=== PATIENT | male | born 1955 | race American Indian/Alaskan Native ===

== ENCOUNTER 2016-10-31 11:06 | Emergency (ER) | payer OTHER ==
[2016-10-31 11:07] VITALS: BMI 25.8
[2016-10-31 11:18] VITALS: RESP 18
[2016-10-31] MEDS ORDERED: Lidocaine 5% Patch TD STA (11:35)
[2016-10-31] MEDS ORDERED: Lidocaine 5% Patch TD ONE (11:43)
--- NOTE | 2016-10-31 12:20 | RAD ---
PROCEDURE: Radiographs of the Lumbar Spine. HISTORY: Fall COMPARISON: 11/30/2013 FINDINGS: BONES: There is mild dextrocurvature in the lumbar spine. There is degenerative 7 mm retrolisthesis of L5 on S1 4 mm retrolisthesis of L4 on L5. Bone mineralization is normal. There is no acute fracture. DISC SPACES: There is moderate degenerative disc disease at L4-5 and L5-S1 with large anterior osteophytes, reduced disc heights and facet arthropathy, worse at L5-S1. No significant interval change. OTHER FINDINGS: None. IMPRESSION: No acute fracture. No significant interval change in moderate degenerative disc disease at L4-5 and L5-S1.
--- NOTE | 2016-10-31 12:31 | C.PDOC ---
History Of Present Illness 61 yr old male with past surgical history of cervical spine surgery in 2016 still in rehab, presents to the ER stating 4 days ago he slipped and fell in his kitchen and now has pain in the lower back. Patient states the pain is persistent and radiated outwards to right and left side. Patient denies LOC, fever, nausea, vomiting, abdominal pain, diarrhea, dysuria, incontinence, weakness or numbness. Time Seen by Provider: 10/31/16 11:24 Chief Complaint (Nursing): Back Pain History Per: Patient History/Exam Limitations: no limitations Onset/Duration Of Symptoms: Persistent (4 days) Current Symptoms Are (Timing): Still Present Past Medical History Reviewed: Historical Data, Nursing Documentation, Vital Signs Vital Signs: Last Vital Signs Temp 98.2 F 10/31/16 12:37 Pulse 72 10/31/16 12:37 Resp 18 10/31/16 12:37 BP 148/75 10/31/16 12:37 Pulse Ox 94 L 10/31/16 13:16 - Medical History PMH: Arthritis (Gout), Asthma, Back Problems, HTN, Hypercholesterolemia, Rheumatoid Arthritis, Chronic Pain (back pain) Surgical History: Back Surgery - [facility] Procedures ARTHROCENTESIS (07/15/13) CLOSURE SKIN & SUBCUTANEOUS NEC (03/13/14) TETANUS TOXOID ADMINIST (03/13/14) Family History: States: No Known Family Hx - Social History Hx Tobacco Use: Yes Hx Alcohol Use: Yes (not all the time) Hx Substance Use: No (Denied) - Immunization History Hx Tetanus Toxoid Vaccination: Yes Hx Influenza Vaccination: No Hx Pneumococcal Vaccination: No Review Of Systems Except As Marked, All Systems Reviewed And Found Negative. Constitutional: Negative for: Fever Gastrointestinal: Negative for: Nausea, Vomiting, Abdominal Pain, Diarrhea Genitourinary: Negative for: Dysuria, Incontinence Musculoskeletal: Positive for: Back Pain (Lower back pain ) Neurological: Negative for: Weakness, Numbness Physical Exam - Physical Exam Appears: Non-toxic, No Acute Distress Skin: Warm, Dry, No Rash Head: Atraumatic, Normacephalic, No Laceration Oral Mucosa: Moist Neck: Normal, Normal ROM, Supple Chest: Symmetrical, No Tenderness Cardiovascular: Rhythm Regular, No Murmur Respiratory: Normal Breath Sounds, No Rales, No Rhonchi, No Stridor, No Wheezing Gastrointestinal/Abdominal: Normal Exam, Soft, No Tenderness, No Guarding, No Rebound Back: Other ((+) Tenderness to perispinal, right side lower lumbar area.) Extremity: Normal ROM, No Swelling Neurological/Psych: Oriented x3, Normal Speech, Normal Motor ED Course And Treatment O2 Sat by Pulse Oximetry: 94 - Other Rad X-Ray - LS Spine X-Ray: Viewed By Me, Read By Radiologist Interpretation: PROCEDURE: Radiographs of the Lumbar Spine. HISTORY: Fall. COMPARISON: 11/30/2013. FINDINGS: BONES: There is mild dextrocurvature in the lumbar spine. There is degenerative 7 mm retrolisthesis of L5 on S1 4 mm retrolisthesis of L4 on L5. Bone mineralization is normal. There is no acute fracture. DISC SPACES: There is moderate degenerative disc disease at L4-5 and L5-S1 with large anterior osteophytes, reduced disc heights and facet arthropathy, worse at L5-S1. No significant interval change. OTHER FINDINGS: None. IMPRESSION: No acute fracture. No significant interval change in moderate degenerative disc disease at L4-5 and L5-S1. Medical Decision Making Medical Decision Making: PLAN: * X-Ray - LS Spine * Lidoderm TD * Motrin PO * Tylenol PO Disposition Counseled Patient/Family Regarding: Studies Performed, Diagnosis, Need For Followup, Rx Given - Disposition Referrals: Obinna Vasquez MD [Primary Care Provider] - Disposition: HOME/ ROUTINE Disposition Time: 12:28 Condition: STABLE Additional Instructions: Please follow up with your primary physician and continue rehab as soon as possible. Return to the ED with any other concerns. Prescriptions: Lidocaine 5% [Lidoderm] 1 each TP DAILY #3 patch Ibuprofen [Motrin] 600 mg PO TID #15 tab Acetaminophen [Tylenol 325mg tab] 975 mg PO TID #36 tab Instructions: Back Exercises (ED), Back Pain (ED) Forms: General Discharge Instructions - POA Present On Arrival: None - Clinical Impression Clinical Impression: Lumbar sprain, Low back strain - Scribe Statement The provider has reviewed the documentation as recorded by the [employer] Provider Attestation: All medical record entries made by the Scribe were at my direction and personally dictated by me. I have reviewed the chart and agree that the record accurately reflects my personal performance of the history, physical exam, medical decision making, and the department course for this patient. I have also personally directed, reviewed, and agree with the discharge instructions and disposition.
[2016-10-31 12:38] VITALS: BP 148/75; PULSE 72; TEMP 98.2
[2016-10-31 12:43] VITALS: O2SAT 94
== END 2016-10-31 12:39 | disposition home or self-care (01) ==
LOC: C.ER 11:06 → SUPCPDRO 11:06 → C.ER 12:39
DX: S33.5XXA Sprain of ligaments of lumbar spine, initial encounter (principal); S39.012A Strain of muscle, fascia and tendon of lower back, initial encounter; W01.0XXA Fall on same level from slipping, tripping and stumbling without subsequent striking against object, initial encounter; Y93.89 Activity, other specified; Y92.000 Kitchen of unspecified non-institutional (private) residence as the place of occurrence of the external cause

== ENCOUNTER 2017-08-05 13:01 | Emergency (ER) | payer OTHER ==
[2017-08-05 13:02] VITALS: BMI 25.8
[2017-08-05 13:26] VITALS: RESP 18
[2017-08-05] MEDS ORDERED: Bupivacaine 0.5% Inj(30mL) INJ ONE (13:51)
[2017-08-05] MEDS ORDERED: methylPREDNISolone Depo 80 mg/ml Inj IM ONE (13:52)
--- NOTE | 2017-08-05 13:53 | C.PDOC ---
History Of Present Illness 62 years old male presents to ED on crutches with complaints of right knee pain and swelling. Patient states he had similar symptoms 2 years ago and it was diagnosed as a ganglion cyst. Denies any other physical complaints. Chief Complaint (Nursing): Lower Extremity Problem/Injury History Per: Patient History/Exam Limitations: no limitations Onset/Duration Of Symptoms: Days (3) Current Symptoms Are (Timing): Still Present Severity: Moderate Pain Scale Rating Of: 5 Recent travel outside of the [place]: No - Hip Description Of Injury: denies: Fell, Tripped, Lost Balance, Fainted, Struck With Object, MVC Past Medical History Reviewed: Historical Data, Nursing Documentation, Vital Signs Vital Signs: Last Vital Signs Temp 98.6 F 08/05/17 15:36 Pulse 84 08/05/17 15:36 Resp 18 08/05/17 15:36 BP 146/78 08/05/17 15:36 Pulse Ox 99 08/05/17 15:46 - Medical History PMH: Arthritis, Asthma, Back Problems, HTN, Hypercholesterolemia, Rheumatoid Arthritis, Chronic Pain (back pain) Surgical History: Back Surgery - [facility] Procedures ARTHROCENTESIS (07/15/13) CLOSURE SKIN & SUBCUTANEOUS NEC (03/13/14) TETANUS TOXOID ADMINIST (03/13/14) Family History: States: Unknown Family Hx - Social History Hx Tobacco Use: Yes Hx Alcohol Use: Yes (not all the time) Hx Substance Use: No (Denied) - Immunization History Hx Tetanus Toxoid Vaccination: Yes Hx Influenza Vaccination: No Hx Pneumococcal Vaccination: No Review Of Systems Constitutional: Negative for: Fever, Chills Gastrointestinal: Negative for: Nausea, Vomiting, Diarrhea Musculoskeletal: Positive for: Other (Right knee pain and swelling) Skin: Negative for: Rash Neurological: Negative for: Weakness, Numbness Psych: Negative for: Depression, Suicidal ideation Physical Exam - Physical Exam Appears: Non-toxic, Other (Awake and Alert) Skin: Normal Color, Warm, Dry Extremity: Swelling (Diffuse on right knee with obvious effusion ), Other ( Limited ROM on extension and flexation of right knee) Neurological/Psych: Oriented x3, Normal Speech, Normal Cognition ED Course And Treatment O2 Sat by Pulse Oximetry: 99 (Room air) Pulse Ox Interpretation: Normal Procedure: Blank - Time Out Time Out: Side verified, Sterile procedures obs. - Consent obtained: Consent obtained: Verbal - Performed by: Performed by:: Attending physician - Indications Indications(s):: Large joint effusion - Anesthetic Technique Anesthetic Technique: Local - Topical: Local/Regional Anesthetic:: Other (Bupivicane) - Patient Position Patient Position:: Supine - Location Location: Right, Knee - Needle Size Needle Size:: 19 mia - Description Discription of Procedure: 08/05/17 (Needle aspiration of joint) - Result Result: Successful - Post-Procedure Post-procedure:: Other (60 cc of jens colored fluid aspirated, no complications ) - Specimens/Tests Ordered Specimens/Tests Ordered: crystals, culture and cell count - Patient Tolerated Procedure Patient Tolerated Procedure:: Well Medical Decision Making Medical Decision Making: Administered Colocrys, Indocin, Marcaine and DEPO-Medrol. Ordered body fluid cultures, and fluid crystals. Disposition - Disposition Referrals: [facility] [Outside] Disposition: HOME/ ROUTINE Disposition Time: 15:43 Condition: GOOD Prescriptions: Indomethacin [Indocin] 50 mg PO TID PRN #21 cap PRN Reason: Pain, Mild (1-3) Instructions: Gout (ED) Forms: [employer] (Albanian) Print Language: SINGAPOREAN - Clinical Impression Clinical Impression: Arthritis, gouty - Scribe Statement The provider has reviewed the documentation as recorded by the Scribanuj Gabriel All medical record entries made by the Scribe were at my direction and personally dictated by me. I have reviewed the chart and agree that the record accurately reflects my personal performance of the history, physical exam, medical decision making, and the department course for this patient. I have also personally directed, reviewed, and agree with the discharge instructions and disposition. All medical record entries made by the Scribe were at my direction and personally dictated by me. I have reviewed the chart and agree that the record accurately reflects my personal performance of the history, physical exam, medical decision making, and the department course for this patient. I have also personally directed, reviewed, and agree with the discharge instructions and disposition.
[2017-08-05] MEDS ORDERED: MethylPREDNISolone 40 mg Vial ONE (14:37)
[2017-08-05 15:13] LABS: FLUID TYPE SYNOVIAL FLUID
[2017-08-05 15:36] VITALS: BP 146/78; PULSE 84; TEMP 98.6
[2017-08-05 15:45] VITALS: O2SAT 99
[2017-08-05 16:08] LABS: SF GROSS APPEARANCE CLOUDY (CLEAR)
[2017-08-05 16:10] LABS: SYNOVIAL FLUID MONO/MACROPHAGE 7 % (0-0)
[2017-08-06 10:17] LABS: FLUID CRYSTALS POSITIVE (NEGATIVE)
[2017-08-08 22:51] LABS: URIC ACID SYNOVIAL FLUID 9.4 mg/dL (<8.0)
== END 2017-08-05 15:57 | disposition home or self-care (01) ==
LOC: C.ER 13:01
DX: M10.9 Gout, unspecified (principal); M17.11 Unilateral primary osteoarthritis, right knee; I10 Essential (primary) hypertension; E78.00 Pure hypercholesterolemia, unspecified; M06.9 Rheumatoid arthritis, unspecified; Z87.891 Personal history of nicotine dependence

== ENCOUNTER 2018-03-29 08:38 | Emergency (ER) | payer OTHER ==
[2018-03-29 08:52] VITALS: BP 131/84; PULSE 86; RESP 18; TEMP 99.2; O2SAT 95; BMI 28.2
--- NOTE | 2018-03-29 09:20 | C.PDOC ---
History Of Present Illness 62-YEAR-OLD MALE, PRESENTS TO THE EMERGENCY DEPARTMENT REQUESTING EVAL FOR TB. PS WAS RECENTLY TOLD CLOSE PARTNER HAS TB. PT OTHERWISE ASYMPT. EXAM CTA B/L NO W/R/R REMAINDER NEG Chief Complaint (Nursing): Medical Clearance History Per: Patient History/Exam Limitations: no limitations Past Medical History Reviewed: Historical Data, Nursing Documentation, Vital Signs Vital Signs: Last Vital Signs Temp 99.2 F 03/29/18 09:01 Pulse 86 03/29/18 09:01 Resp 18 03/29/18 09:13 BP 131/84 03/29/18 09:01 Pulse Ox 95 03/29/18 09:22 - Medical History PMH: Arthritis, Asthma, Back Problems, HTN, Hypercholesterolemia, Rheumatoid Arthritis, Chronic Pain (back pain) Denies: Chronic Kidney Disease Surgical History: Back Surgery (spinal fusion) - [facility] Procedures ARTHROCENTESIS (07/15/13) CLOSURE SKIN & SUBCUTANEOUS NEC (03/13/14) TETANUS TOXOID ADMINIST (03/13/14) Family History: States: No Known Family Hx - Social History Hx Tobacco Use: Yes Hx Alcohol Use: No Hx Substance Use: No (Denied) - Immunization History Hx Tetanus Toxoid Vaccination: Yes Hx Influenza Vaccination: Yes (2017) Hx Pneumococcal Vaccination: No Review Of Systems Except As Marked, All Systems Reviewed And Found Negative. Physical Exam - Physical Exam Appears: Non-toxic, No Acute Distress Skin: Normal Color, Warm, Dry, No Rash Head: Atraumatic, Normacephalic Eye(s): bilateral: Normal Inspection, PERRL Nose: Normal Oral Mucosa: Moist Lips: Normal Appearing Neck: Normal ROM Chest: Symmetrical Cardiovascular: Rhythm Regular, No Murmur Respiratory: Normal Breath Sounds, No Decreased Breath Sounds, No Accessory Muscle Use, No Rales, No Rhonchi, No Wheezing Gastrointestinal/Abdominal: Soft, No Tenderness Extremity: Normal ROM, No Deformity Neurological/Psych: Oriented x3, Normal Speech ED Course And Treatment O2 Sat by Pulse Oximetry: 95 Pulse Ox Interpretation: Normal (RA) Medical Decision Making Medical Decision Making: MDM PT ADVISED ER DOES NOT PERFORM PPD TESTING. OFFERED CXR BUT PS WILL FU W PMD IN 2 DAYS. Disposition Counseled Patient/Family Regarding: Diagnosis, Need For Followup - Disposition Referrals: YOUR,PMD [Other] Disposition: HOME/ ROUTINE Disposition Time: 09:21 Condition: GOOD Additional Instructions: FOLLOW UP WITH YOUR PMD FOR FURTHER TESTING Instructions: TB Screening Test Forms: [employer] (Divehi) - Clinical Impression Clinical Impression: Exposure to TB, Medical assessment - Scribe Statement The provider has reviewed the documentation as recorded by the Scribe (Christine Garrett) All medical record entries made by the Scribe were at my direction and personally dictated by me. I have reviewed the chart and agree that the record accurately reflects my personal performance of the history, physical exam, medical decision making, and the department course for this patient. I have also personally directed, reviewed, and agree with the discharge instructions and disposition.
== END 2018-03-29 09:24 | disposition home or self-care (01) ==
LOC: C.ER 08:38
DX: Z20.1 Contact with and (suspected) exposure to tuberculosis (principal); E78.00 Pure hypercholesterolemia, unspecified; I10 Essential (primary) hypertension; M06.9 Rheumatoid arthritis, unspecified; Z72.0 Tobacco use

== ENCOUNTER 2018-11-09 08:31 | Emergency (ER) | payer OTHER ==
[2018-11-09 08:31] VITALS: BMI 25.8
[2018-11-09] MEDS ORDERED: Sodium Chloride 0.9% 1,000 ML IV ONE (09:00)
[2018-11-09] MEDS ORDERED: Iohexol 240 (50 ml) PO ONE (09:18)
--- NOTE | 2018-11-09 09:21 | C.PDOC ---
History Of Present Illness Pt is a 63 years old male with PMHx of asthma, HTN, "nerve damage" and gout presents to ED for complaints diffuse abdominal pain associated with nausea and 1 episode of vomiting that began 1 week ago. Patient describes symptoms were intermittent then became constant and characterized as "pressure-like pain." Patient reports last bowel movement was 2 days ago. Denies fever, diarrhea, fever or any other complaints. Patient also reports he smokes and drinks but denies drug use. Pt states he tried Pepto Bismo for his symptoms but did not help. Denies Hx of diabetes. PMD: Obinna Lazar D / Time Seen by Provider: 11/09/18 08:59 Chief Complaint (Nursing): Abdominal Pain History Per: Patient History/Exam Limitations: no limitations Onset/Duration Of Symptoms: Hrs Current Symptoms Are (Timing): Still Present Location Of Pain/Discomfort: Diffuse Radiation Of Pain To:: None Quality Of Discomfort: Pressure Associated Symptoms: Nausea, Vomiting. denies: Fever, Chills, Diarrhea, Urinary Symptoms Exacerbating Factors: None Alleviating Factors: None Last Bowel Movement: Days Ago (2) Recent travel outside of the [place]: No Past Medical History Reviewed: Historical Data, Nursing Documentation, Vital Signs Vital Signs: Last Vital Signs Temp 98.3 F 11/09/18 08:40 Pulse 99 H 11/09/18 08:40 Resp 18 11/09/18 08:40 BP 118/78 11/09/18 08:40 Pulse Ox 95 11/09/18 08:40 - Medical History PMH: Arthritis, Asthma, Back Problems, HTN, Hypercholesterolemia, Rheumatoid Arthritis, Chronic Pain (back pain) Denies: Chronic Kidney Disease Surgical History: Back Surgery (spinal fusion) - [facility] Procedures ARTHROCENTESIS (07/15/13) CLOSURE SKIN & SUBCUTANEOUS NEC (03/13/14) TETANUS TOXOID ADMINIST (03/13/14) Family History: States: No Known Family Hx - Social History Hx Tobacco Use: Yes Hx Alcohol Use: Yes Hx Substance Use: Yes (Marijuana) - Immunization History Hx Tetanus Toxoid Vaccination: Yes Hx Influenza Vaccination: Yes (2017) Hx Pneumococcal Vaccination: No Review Of Systems Except As Marked, All Systems Reviewed And Found Negative. Constitutional: Negative for: Fever, Chills Respiratory: Negative for: Shortness of Breath Gastrointestinal: Positive for: Nausea, Vomiting, Abdominal Pain. Negative for: Diarrhea Genitourinary: Negative for: Dysuria Musculoskeletal: Negative for: Back Pain Skin: Negative for: Rash Neurological: Negative for: Weakness, Numbness Physical Exam - Physical Exam Appears: Non-toxic, No Acute Distress Skin: Normal Color, Warm, Dry, No Rash Head: Atraumatic, Normacephalic Eye(s): bilateral: Normal Inspection, EOMI Ear(s): Bilateral: Normal Nose: Normal Oral Mucosa: Moist Tongue: Normal Appearing Lips: Normal Appearing Throat: Normal Neck: Normal ROM, Supple Chest: Symmetrical, No Tenderness Cardiovascular: Rhythm Regular, No Murmur Respiratory: Normal Breath Sounds, No Rales, No Rhonchi, No Wheezing Gastrointestinal/Abdominal: Bowel Sounds (Hyperactive bowel sounds ), Soft, No Tenderness, No Guarding, No Rebound Rectal: Deferred Male Genital: Normal Inspection Extremity: Normal ROM Extremity: Bilateral: Atraumatic, Normal Color And Temperature, Normal ROM Pulses: Left Radial: Normal, Right Radial: Normal Neurological/Psych: Oriented x3, Normal Speech, Normal Motor, Normal Sensation Gait: Steady ED Course And Treatment - Laboratory Results Result Diagrams: 11/09/18 09:27 11/09/18 09:27 O2 Sat by Pulse Oximetry: 95 (RA) Pulse Ox Interpretation: Normal - CT Scan/US Abdomen/Pelvis CT Other Rad Studies (CT/US): Read By Radiologist, Radiology Report Reviewed CT/US Interpretation: Date of service: 11/09/2018. PROCEDURE: CT Abdomen and Pelvis with Oral contrast. HISTORY: Abdominal pain x 1 week. COMPARISON: None. TECHNIQUE: Contiguous axial images of the abdomen and pelvis. Oral contrast was administered. No IV contrast given. Coronal and Sagittal reformats generated. Radiation dose: Total exam DLP = 394.1 mGy-cm. This CT exam was performed using one or more of the following dose reduction techniques: Automated exposure control, adjustment of the mA and/or kV according to patient size, and/or use of iterative reconstruction technique. FINDINGS: LOWER THORAX: No evidence of acute pathology at the lung bases. Moderate size hiatus hernia is noted. The heart is normal in size. No evidence of pericardial or pleural effusion. LIVER: Heterogeneous attenuation of the mildly enlarged liver is noted. Suspicious for focal low attenuation lesion at the inferior aspect of the right liver lobe measures 2.1 centimeter in the transverse diameter and 2 centimeter in the AP diameter. GALLBLADDER AND BILE DUCTS: Unremarkable. PANCREAS: Unremarkable. No mass. No ductal dilatation. SPLEEN: Unremarkable. No splenomegaly. ADRENALS: Unremarkable. KIDNEYS AND URETERS: No evidence of nephrolithiasis or hydronephrosis. There is 1.5 centimeter low- attenuation cyst at the upper pole left kidney. The ureters are not dilated . BLADDER: The urinary bladder is not distended therefore cannot be evaluated. REPRODUCTIVE: The prostate and seminal vesicles are mildly enlarged. APPENDIX: No definite CT evidence of appendicitis. BOWEL: Scattered colonic diverticulosis noted in the descending and sigmoid colon. No definite evidence of diverticulitis. No evidence of high-grade bowel obstruction. PERITONEUM: Unremarkable. No fluid collection. No free air. LYMPH NODES: Unremarkable. No enlarged lymph nodes. VASCULATURE: Unremarkable. No aortic aneurysm. Punctate foci of atherosclerotic calcification noted. BONES: No fracture or destructive lesion. OTHER FINDINGS: None. IMPRESSION: No evidence of nephrolithiasis or hydronephrosis. No evidence of cholecystitis pancreatitis or appendicitis. Suspicious for 2.1 centimeter low-attenuation lesion at the inferior aspect of the right liver lobe. Colonic diverticulosis noted without evidence of diverticulitis. Moderate size hiatus hernia. Medical Decision Making Medical Decision Making: Initial Impression: Undifferentiated abdominal pain Initial Plan: * IV Fluids * Pepcid * Urinalysis * Blood work * CT abdomen * Blood gas Disposition Counseled Patient/Family Regarding: Studies Performed, Diagnosis, Need For Followup - Disposition Referrals: Obinna Vasquez MD [Medical Doctor] - Disposition: HOME/ ROUTINE Disposition Time: 11:39 Condition: IMPROVED Additional Instructions: Mr. Joya, thank you for letting us take care of you today. Return to the ER if your symptoms worsen, or if any problems. Take the medication below as prescribed. You have an appointment with your doctor tomorrow. Please follow up with him and also give him the lab results and CAT scan results which we have given you today. Prescriptions: levoFLOXacin [Levaquin] 1 tab PO DAILY #5 tab Ranitidine HCl [Zantac] 1 tab PO BID #60 tablet Instructions: Acute Abdomen (Belly Pain), Adult (DC), Urinary Tract Infection, Adult (DC) Forms: [employer] (Chinese) Print Language: MONGOLIAN - POA Present On Arrival: None - Clinical Impression Clinical Impression: Abdominal pain, Urinary tract infection - Scribe Statement The provider has reviewed the documentation as recorded by the Scribe Bradley Gabriel All medical record entries made by the Scribe were at my direction and personally dictated by me. I have reviewed the chart and agree that the record accurately reflects my personal performance of the history, physical exam, medical decision making, and the department course for this patient. I have also personally directed, reviewed, and agree with the discharge instructions and disposition.
[2018-11-09] MEDS ORDERED: Iohexol 240 (50 ml) ONE (09:30)
[2018-11-09] MEDS ORDERED: Sodium Chloride 0.9% 1,000 ML ONE (09:30)
[2018-11-09 09:32] LABS: BASO % 0.9 % (0.0-2.0); EOS % 0.7 % (0.0-4.0); LYMPH # 1.3 K/uL (1.0-4.3); LYMPH % 28.6 % (20.0-40.0); MEAN CORPUSCULAR HEMOGLOBIN 34.4 pg (27.0-31.0); MEAN CORPUSCULAR HGB CONC 34.3 g/dL (33.0-37.0); MEAN PLATELET VOLUME 8.6 fL (7.2-11.7); MONO # 0.5 K/uL (0.0-0.8); MONO % 12.4 % (0.0-10.0); NEUT # 2.5 K/uL (1.8-7.0); NEUT % 57.4 % (50.0-75.0); NRBC % 0.1 % (0.0-2.0); RBC 4.52 Mil/uL (4.40-5.90); RED CELL DISTRIBUTION WIDTH 12.8 % (11.5-14.5); WHITE BLOOD COUNT 4.4 K/uL (4.8-10.8)
[2018-11-09 09:33] LABS: VENOUS BLOOD GAS BASE EXCESS 6.3 mmol/L (0.0-2.0); VENOUS BLOOD GAS PCO2 51 mmHg (40-60); VENOUS BLOOD GAS PO2 26 mm/Hg (30-55); VENOUS BLOOD PH 7.41 (7.32-7.43)
[2018-11-09] MEDS ORDERED: Iodixanol 320 MG/ML 100 ML BOTTLE IV ONE (09:36)
[2018-11-09 09:40] LABS: HEMOGLOBIN 15.5 g/dL (12.0-18.0); MEAN CELL VOLUME 100.2 fL (80.0-94.0)
[2018-11-09 09:45] LABS: INR 1.1; PROTHROMBIN TIME 11.6 SECONDS (9.7-12.2)
[2018-11-09 09:46] LABS: ALB/GLOB RATIO 1.6 (1.0-2.1); CALCIUM 10.5 mg/dl (8.6-10.4)
[2018-11-09] MEDS ORDERED: Potassium Chloride 20 mEq/15 ml LIQ UD PO STA (09:53)
[2018-11-09] MEDS ORDERED: Potassium Chloride 20 mEq/15 ml LIQ UD ONE (10:03)
[2018-11-09 10:45] LABS: SQUAMOUS EPITHIAL 1 /hpf (0-5); URINE BACTERIA MANY (<OCC); URINE BILIRUBIN NEGATIVE (NEGATIVE); URINE BLOOD NEGATIVE (NEGATIVE); URINE CLARITY Hazy (Clear); URINE COLOR Yellow (YELLOW); URINE GLUCOSE (UA) NORMAL (Normal); URINE LEUKOCYTE ESTERASE 2+ Leu/uL (Negative); URINE PROTEIN NEGATIVE (NEGATIVE); URINE UROBILINOGEN NORMAL mg/dL (0.2-1.0)
[2018-11-09 10:59] VITALS: BP 137/84; PULSE 84; RESP 17; TEMP 98.6
--- NOTE | 2018-11-09 11:24 | CT ---
Date of service: 11/09/2018 PROCEDURE: CT Abdomen and Pelvis with Oral contrast. HISTORY: Abdominal pain x 1 week COMPARISON: None. TECHNIQUE: Contiguous axial images of the abdomen and pelvis. Oral contrast was administered. No IV contrast given. Coronal and Sagittal reformats generated. Radiation dose: Total exam DLP = 394.1 mGy-cm. This CT exam was performed using one or more of the following dose reduction techniques: Automated exposure control, adjustment of the mA and/or kV according to patient size, and/or use of iterative reconstruction technique. FINDINGS: LOWER THORAX: No evidence of acute pathology at the lung bases. Moderate size hiatus hernia is noted. The heart is normal in size. No evidence of pericardial or pleural effusion. LIVER: Heterogeneous attenuation of the mildly enlarged liver is noted. Suspicious for focal low attenuation lesion at the inferior aspect of the right liver lobe measures 2.1 centimeter in the transverse diameter and 2 centimeter in the AP diameter. GALLBLADDER AND BILE DUCTS: Unremarkable. PANCREAS: Unremarkable. No mass. No ductal dilatation. SPLEEN: Unremarkable. No splenomegaly. ADRENALS: Unremarkable. KIDNEYS AND URETERS: No evidence of nephrolithiasis or hydronephrosis. There is 1.5 centimeter low-attenuation cyst at the upper pole left kidney. The ureters are not dilated . BLADDER: The urinary bladder is not distended therefore cannot be evaluated. REPRODUCTIVE: The prostate and seminal vesicles are mildly enlarged. APPENDIX: No definite CT evidence of appendicitis. BOWEL: Scattered colonic diverticulosis noted in the descending and sigmoid colon. No definite evidence of diverticulitis. No evidence of high-grade bowel obstruction. PERITONEUM: Unremarkable. No fluid collection. No free air. LYMPH NODES: Unremarkable. No enlarged lymph nodes. VASCULATURE: Unremarkable. No aortic aneurysm. Punctate foci of atherosclerotic calcification noted. BONES: No fracture or destructive lesion. OTHER FINDINGS: None. IMPRESSION: No evidence of nephrolithiasis or hydronephrosis. No evidence of cholecystitis pancreatitis or appendicitis. Suspicious for 2.1 centimeter low-attenuation lesion at the inferior aspect of the right liver lobe. Colonic diverticulosis noted without evidence of diverticulitis. Moderate size hiatus hernia.
[2018-11-09 11:35] VITALS: O2SAT 95
== END 2018-11-09 11:51 | disposition home or self-care (01) ==
LOC: C.ER 08:31
DX: N39.0 Urinary tract infection, site not specified (principal); I10 Essential (primary) hypertension; E78.00 Pure hypercholesterolemia, unspecified; M06.9 Rheumatoid arthritis, unspecified; F17.210 Nicotine dependence, cigarettes, uncomplicated
CPT/HCPCS: 74176; 80053; 81001; 82803; 83690; 85025; 85610; 85730; 87086; 87181; 96361; 96374; 99285; J7030; Q9966